=== PATIENT | male | born 1950 | race Caucasian/White ===

== ENCOUNTER 2017-12-06 09:18 | Outpatient (CLI) | payer MEDICARE, OTHER ==
[2017-12-06 10:41] LABS: Hemoglobin 15.4 g/dL (14.0-18.0); Mean Corpuscular HGB CONC 32.5 g/dL (32.0-36.0); Mean Corpuscular Hemoglobin 29.6 pg (27.0-31.0); Mean Corpuscular Volume 91.1 fL (78.0-98.0); Mean Platelet Volume 8.9 fL (7.4-10.4); Platelet Count 202 thou/uL (130-400); RBC Distribution Width 14.3 % (11.5-14.5); White Blood Cell (WBC) Count 7.9 thou/uL (4.8-10.8)
[2017-12-06 10:50] LABS: INR-International Normal Ratio 1.7; PTT 39.4 SEC (22.9-36.1); Prothrombin Time 19.9 SEC (12.0-14.7)
[2017-12-06 11:05] LABS: ALT (SGPT) 17 U/L (8-55); AST (SGOT) 15 U/L (5-34); Albumin 3.8 g/dL (3.4-4.8); Alkaline Phosphatase 51 U/L (40-150); Anion Gap 11 mmol/L (10-20); BUN (Urea Nitrogen) 12 mg/dL (8.4-25.7); Calc. Creatinine Clearance 0 mL/min (70-130); Calcium 8.8 mg/dL (7.8-10.44); Carbon Dioxide 23 mmol/L (23-31); Cardiac Risk 3.7 (Less than 4.5); Chloride 108 mmol/L (98-107); Cholesterol 116 mg/dl (< 200 Desired); Estimated GFR-MDRD 65; Glucose 97 mg/dL (80-115); HDL Cholesterol 31 mg/dL (>60 Neg Risk); LDL Cholesterol, Calculated 60 mg/dL; Potassium 4.7 mmol/L (3.5-5.1); Protein, Total 6.8 g/dL (5.8-8.1); Sodium 137 mmol/L (136-145); Triglycerides 127 mg/dL (Less than 150)
--- NOTE | 2017-12-08 17:53 | EKG ---
Test Reason : Blood Pressure : / mmHG Vent. Rate : 065 BPM Atrial Rate : 065 BPM P-R Int : 000 ms QRS Dur : 076 ms QT Int : 422 ms P-R-T Axes : 000 -64 012 degrees QTc Int : 438 ms Electronic atrial pacemaker Low voltage QRS Left anterior fascicular block Nonspecific ST and T wave abnormality Abnormal ECG Confirmed by JANE DARBY (2) on 12/08/2017 5:52:34 PM Referred By: ROGER Confirmed By:JANE DARBY
== END 2017-12-06 09:19 | disposition home or self-care (01) ==
LOC: LABBT 09:18
PROVIDERS: ATTEND Internal Medicine Cardiovascular Disease
DX: Z01.818 Encounter for other preprocedural examination (principal); R94.39 Abnormal result of other cardiovascular function study
CPT/HCPCS: 80053; 80061; 85027; 85610; 85730; 93005; 93010

== ENCOUNTER 2017-12-09 05:56 | Day surgery (SDC) | payer MEDICARE, OTHER ==
[2017-12-06 09:48] VITALS: BMI 39.2
[2017-12-09] MEDS ORDERED: Diazepam 5 MG TAB ONE (06:57)
[2017-12-09] MEDS ORDERED: Lidocaine 1% (PF) 30 ML VIAL ONE (07:51)
[2017-12-09] MEDS ORDERED: Midazolam HCl 2 mg/2 ml Vial ONE (07:56)
[2017-12-09] MEDS ORDERED: Fentanyl 100 MCG/2 ML VIAL ONE (07:56)
[2017-12-09] MEDS ORDERED: Nitroglycerin 100MG/250ML BOT 250 ML ONE (08:49)
[2017-12-09] MEDS ORDERED: Iopamidol 370 76% 100 ML VIAL ONE (11:04)
== END 2017-12-09 14:08 | disposition home or self-care (01) ==
LOC: SDC 05:56
PROVIDERS: ATTEND Internal Medicine Cardiovascular Disease
PROC: 4A023N7 Measurement of Cardiac Sampling and Pressure, Left Heart, Percutaneous Approach (ICD-10-PCS; principal; 2017-12-09)
PROC: B2111ZZ Fluoroscopy of Multiple Coronary Arteries using Low Osmolar Contrast (ICD-10-PCS; 2017-12-09)
DX: I25.10 Atherosclerotic heart disease of native coronary artery without angina pectoris (principal); E78.5 Hyperlipidemia, unspecified; I25.2 Old myocardial infarction; I10 Essential (primary) hypertension; I48.0 Paroxysmal atrial fibrillation; Z79.01 Long term (current) use of anticoagulants; Z79.82 Long term (current) use of aspirin; Z79.891 Long term (current) use of opiate analgesic; Z79.899 Other long term (current) drug therapy; Z95.5 Presence of coronary angioplasty implant and graft
CPT/HCPCS: 76942; 93458; C1769; 99152; J1644; J2001; J2250; J3010

== ENCOUNTER 2017-12-20 05:58 | Inpatient (IN) | payer MEDICARE, OTHER ==
[2017-12-20] MEDS ORDERED: Albumin 5% 500 ML ONE (06:30)
[2017-12-20] MEDS ORDERED: Heparin 10,000 UNITS/1 ML VIAL 30,000 UNITS in Sodium Chloride 0.9% 1,000 ML FS SCH (06:45)
[2017-12-20 06:57] LABS: Hemoglobin 15.8 g/dL (14.0-18.0); Mean Corpuscular HGB CONC 33.1 g/dL (32.0-36.0); Mean Corpuscular Hemoglobin 29.9 pg (27.0-31.0); Mean Corpuscular Volume 90.4 fL (78.0-98.0); Mean Platelet Volume 8.8 fL (7.4-10.4); Platelet Count 204 thou/uL (130-400); RBC Distribution Width 14.7 % (11.5-14.5); Red Blood Cell (RBC) Count 5.28 mill/uL (4.70-6.10); White Blood Cell (WBC) Count 8.2 thou/uL (4.8-10.8)
[2017-12-20] MEDS ORDERED: Norepinephrine 8 MG/0.9% NS 250 ML ONE (06:59)
[2017-12-20] MEDS ORDERED: Fentanyl 250 MCG/5 ML VIAL ONE (06:59)
[2017-12-20] MEDS ORDERED: Midazolam HCl 5 mg/5 ml Vial ONE (06:59)
[2017-12-20] MEDS ORDERED: Vecuronium 10 MG VIAL ONE ×2 (06:59→10:07)
[2017-12-20 07:05] LABS: INR-International Normal Ratio 1.1; PTT 31.4 SEC (22.9-36.1)
[2017-12-20] MEDS ORDERED: Midazolam HCl 2 mg/2 ml Vial ONE (07:07)
[2017-12-20] MEDS ORDERED: CEFAZOLIN/Water 2 GM/20 ML SYRINGE ONE (07:18)
[2017-12-20 07:19] LABS: Anion Gap 10 mmol/L (10-20); BUN (Urea Nitrogen) 17 mg/dL (8.4-25.7); Calc. Creatinine Clearance 114 mL/min (70-130); Carbon Dioxide 25 mmol/L (23-31); Chloride 106 mmol/L (98-107); Estimated GFR-MDRD 63; Glucose 114 mg/dL (80-115); Potassium 4.3 mmol/L (3.5-5.1); Sodium 137 mmol/L (136-145)
--- NOTE | 2017-12-20 08:11 | RAD ---
CHEST 1 VIEW: HISTORY: Pacemaker placement. Followup. COMPARISON: 11/24/2012. FINDINGS: Cardiac silhouette is magnified by projection. Pulmonary vasculature is unremarkable. Mild bibasila r parenchymal opacity may represent volume loss. Mediastinum is midline with aortic calcification an d a dual-lead left subclavian cardiac electronic device. No evidence of pneumothorax. IMPRESSION: Mild bibasilar atelectasis. Otherwise, stable radiographic appearance of the chest. POS: [facility]
[2017-12-20] MEDS ORDERED: Succinylcholine Chloride 20 MG/ML 10 ml SYRINGE FS ONE (10:07)
[2017-12-20] MEDS ORDERED: Potassium Chloride 60 MEQ/30 ML VIAL ONE (10:07)
[2017-12-20] MEDS ORDERED: Aminocaproic Acid 5 GM/20 ML VIAL ONE (10:07)
[2017-12-20] MEDS ORDERED: Lidocaine 2% PF 100 mg/5 ml Syringe ONE (10:07)
[2017-12-20] MEDS ORDERED: Mannitol 12.5 GM/50 ML ONE (10:07)
[2017-12-20] MEDS ORDERED: Sodium Bicarb 50 MEQ/50 ML VIAL ONE (10:07)
[2017-12-20] MEDS ORDERED: Papaverine 60 MG/2 ML VIAL ONE (10:07)
[2017-12-20] MEDS ORDERED: Heparin 30,000 units/30 ml VIAL ONE (10:07)
[2017-12-20] MEDS ORDERED: Protamine Sulfate 250 MG/25 ML VIAL ONE (10:07)
[2017-12-20] MEDS ORDERED: Heparin 5,000 UNITS/ML VIAL ONE (10:07)
[2017-12-20] MEDS ORDERED: Magnesium 5 GM/10 ML VIAL ONE (10:07)
[2017-12-20] MEDS ORDERED: Calcium Chloride 1 GM/10 ML Abboject SYRINGE ONE (10:07)
[2017-12-20] MEDS ORDERED: Cardioplegic Soln 1,000 ML BAG ONE (10:07)
[2017-12-20] MEDS ORDERED: Thrombin 5000 UNITS/5 ML VIAL ONE (10:07)
[2017-12-20] MEDS ORDERED: Nitroglycerin 50 MG/250 ML BOT ONE (10:07)
[2017-12-20] MEDS ORDERED: PROPOFOL 200 MG/20 ML VIAL ONE (10:07)
[2017-12-20] MEDS ORDERED: Guaifenesin DM 100-10/5 ML UDCUP PO PRN (11:25)
[2017-12-20] MEDS ORDERED: Potassium Chloride 20 MEQ/100 ML PREMIX BAG IVPB PRN (11:25)
[2017-12-20] MEDS ORDERED: HYDROcodone/Acetaminophen 5/325 mg Tablet PO PRN (11:25)
[2017-12-20] MEDS ORDERED: hydrALAZINE 20 MG/ML VIAL SLOW IVP PRN (11:25)
[2017-12-20] MEDS ORDERED: Mag-Al 1200 mg/1200 mg/30 ML UDCUP PO PRN (11:25)
[2017-12-20] MEDS ORDERED: Norepinephrine 8 MG/0.9% NS 250 ML IVPB PRN (11:25)
[2017-12-20] MEDS ORDERED: Phenylephrine 10 MG/NS 250 ML 250 ML IVPB PRN (11:25)
[2017-12-20] MEDS ORDERED: Nitroglycerin 50 MG/250 ML BOT 250 ML IVPB PRN (11:25)
[2017-12-20] MEDS ORDERED: Morphine 2 MG/ML SYRINGE SLOW IVP PRN (11:25)
[2017-12-20] MEDS ORDERED: Ondansetron HCl/PF 4 MG/2 ML Vial IVP PRN (11:25)
[2017-12-20] MEDS ORDERED: Bisacodyl 5 MG TAB PO PRN (11:25)
[2017-12-20] MEDS ORDERED: Bisacodyl 10 MG SUPP PR PRN (11:25)
[2017-12-20] MEDS ORDERED: Fentanyl 100 MCG/2 ML VIAL SLOW IVP PRN (11:25)
[2017-12-20] MEDS ORDERED: Hetastarch 6% 500 ML 500 ML IVPB PRN (11:25)
[2017-12-20] MEDS ORDERED: Acetaminophen 325 MG TAB PO PRN (11:25)
[2017-12-20] MEDS ORDERED: Promethazine HCl 25 MG/ML VIAL IM PRN (11:25)
[2017-12-20] MEDS ORDERED: Prevnar 13-Val Conj/PF 0.5 ML SYRINGE IM ONE (11:30)
[2017-12-20] MEDS ORDERED: D5 1/2 NS w/20 mEq KCL 1,000 ML IV SCH (11:30)
[2017-12-20] MEDS ORDERED: Magnesium 2 GM/50 ML 2 GM in Premix Bag 1 BAG IVPB SCH (11:30)
[2017-12-20] MEDS ORDERED: Morphine 4 MG/ML VIAL ONE (11:50)
[2017-12-20] MEDS ORDERED: Dextrose 50% Abboject 50 ML SYRINGE SLOW IVP PRN (11:59)
[2017-12-20] MEDS ORDERED: Dextrose 5% in Water 1,000 ML IV PRN (11:59)
[2017-12-20 12:00] LABS: Actual Bicarbonate (HCO3a) 22.9 mEq/L (22-28); Base Excess (BEa) -2.8 mEq/L (-2.0 to +3.0); CO2 Tension 42.9 mmHg (35.0-45.0); Calcium, Ionized 1.07 mmol/L (1.12-1.30); Carboxyhemoglobin (COHb) 1.3 gm% (0.0-3.0); Hemoglobin (Hb) 14.9 g/dL (14.0-18.0); O2 Tension (PaO2) 70.8 mmHg (> 80.0); Potassium - ABG Lab 4.75 mmol/L (3.70-5.30); pH, Arterial 7.35 (7.35-7.45)
[2017-12-20 12:01] LABS: ALV-art Gradient 303.375 (0-20); Puncture Site ALINE
--- NOTE | 2017-12-20 12:03 | OP ---
DATE OF PROCEDURE: 12/20/2017 PREOPERATIVE DIAGNOSES: Coronary artery disease/hypertension/hyperlipidemia. POSTOPERATIVE DIAGNOSES: Coronary artery disease/hypertension/hyperlipidemia. PROCEDURES: Coronary artery bypass grafting x3: 1. Left internal mammary artery to 1.5 mm mid LAD -- good conduit and target. 2. Reverse saphenous vein to 1.5 mm OM -- good conduit and target. 3. Reverse saphenous vein to 1.5 mm PDA -- good conduit and target. SURGEON: Tyler Asif M.D. and Albin Almanza M.D. ANESTHESIA: General endotracheal -- Devan Mills M.D. PUMP TIME: 54 minutes. CROSS-CLAMP TIME: 31 minutes. LOW CORE TEMP: 32-degree Celsius. EQUIPMENT SERVICE TECHNICIAN: Josette Hutton. DRAINS: 24-[place] chest tubes x2. DRIPS: None. TRANSFUSIONS: None. PROCEDURE IN DETAIL: After consent was obtained, the patient was brought to the operating room and p laced in the supine position on the operating room table. Appropriate anesthetic monitor was placed and general endotracheal anesthesia induced. Chest, abdomen and legs were prepped and draped in the usual sterile fashion. Greater saphenous vein was harvested from the left lower extremity using an e ndoscopic technique. Wounds were irrigated and closed in layers. Median sternotomy was performed. Left internal mammary artery was harvested as a pedicle graft. The patient was systemically heparini zed. Distal pedicle was divided and infused with papaverine. Thymic fat and pericardium were divide d with electrocautery. Pericardial stay sutures were placed. Aortic and atrial cannulation was perf ormed. After adequate heparinization, retrograde prime was performed. The patient was then placed o n cardiopulmonary bypass. Distal targets were marked. Aortic cross-clamp was applied and antegrade sanguinous cardioplegic arrest obtained. One liter of antegrade cold [place] cardioplegia was given . Topical cold solution was used. Reverse saphenous vein was anastomosed to the PDA in end-to-side fashion with running 7-0 Prolene suture. Anastomosis was tested and was hemostatic. Reverse sapheno us vein was anastomosed to the OM in end-to-side fashion with running 7-0 Prolene suture. Anastomosi s was tested and was hemostatic. Mammary artery was brought through a window in the pericardium and anastomosed to the LAD in end-to-side fashion with running 7-0 Prolene suture. On release of mammary clamps, good hooding anastomosis and good distal flow. The pedicle was secured with interrupted 6-0 Prolene suture. Cross-clamp was removed and partial occluding clamp placed. Saphenous veins were a nastomosed to individual punch sites with running 6-0 Prolene suture. Partial occluding clamp was re moved and grafts deaired. Anastomoses were inspected for hemostasis. The patient was warmed and wea blanca from cardiopulmonary bypass. After resumption of sinus rhythm, good hemodynamics and temperature greater than 36.5, bypass was discontinued. Transfusions were given. Decannulation was performed a nd pursestring sutures secured. Aortic cannulation site was reinforced with 4-0 Prolene suture. 24- [place] chest tubes were placed in mediastinum. Vancomycin paste was placed on the sternal edges. Af ter adequate hemostasis had been obtained, sternum was closed with #7 wire, 3 in the manubrium and 1 in the distal sternum. Four zip ties were placed in the body of the sternum. Sternum was treated wi th vancomycin paste and platelet-rich plasma. Wires were then twisted and zip ties were tightened an d cut. Wounds irrigated, treated with platelet-poor plasma and closed in multiple layers. Needle, s ponge and instrument counts were all reported as correct at the end of the procedure. The patient wa s transferred to the intensive care unit in stable, but critical condition.
[2017-12-20 12:05] LABS: INR-International Normal Ratio 1.4; PTT 30.4 SEC (22.9-36.1); Prothrombin Time 17.3 SEC (12.0-14.7)
[2017-12-20 12:09] LABS: #Eosinphils 0.3 thou/uL (0.0-0.7); #Lymphocytes 1.6 thou/uL (1.20-3.40); #Neutrophils 12.5 thou/uL (1.40-6.50); %Eosinophils 1.7 % (0.0-10.0); %Lymphocytes 10.3 % (21.0-51.0); %Monocytes 6.6 % (0.0-10.0); %Neutrophils 81.4 % (42.0-75.0); Hemoglobin 14.3 g/dL (14.0-18.0); Mean Corpuscular HGB CONC 33.2 g/dL (32.0-36.0); Mean Corpuscular Hemoglobin 30.2 pg (27.0-31.0); Mean Platelet Volume 8.9 fL (7.4-10.4); Platelet Count 155 thou/uL (130-400); RBC Distribution Width 14.6 % (11.5-14.5); Red Blood Cell (RBC) Count 4.74 mill/uL (4.70-6.10); White Blood Cell (WBC) Count 15.4 thou/uL (4.8-10.8)
[2017-12-20] MEDS: Insulin Regular 300 UNITS/3 ML VIAL SC PRN ×4 (12:15→23:08)
[2017-12-20] MEDS: Ketorolac Tromethamine 30 MG/ML VIAL IVP SCH ×3 (12:16→23:04)
[2017-12-20 12:20] LABS: Anion Gap 10 mmol/L (10-20); BUN (Urea Nitrogen) 15 mg/dL (8.4-25.7); Calc. Creatinine Clearance 141 mL/min (70-130); Calcium 7.7 mg/dL (7.8-10.44); Carbon Dioxide 23 mmol/L (23-31); Chloride 107 mmol/L (98-107); Estimated GFR-MDRD 81; Glucose 143 mg/dL (80-115); Potassium 4.9 mmol/L (3.5-5.1); Sodium 135 mmol/L (136-145)
[2017-12-20] MEDS: Fentanyl 100 MCG/2 ML VIAL SLOW IVP PRN ×5 (12:37→21:40)
[2017-12-20 12:42] VITALS: BMI 37.7
--- NOTE | 2017-12-20 12:44 | RAD ---
RADIOGRAPH CHEST 1 VIEW: Date: 12-20-17 Time: 10:48 a.m. HISTORY: 67-year-old male status post open heart surgery. COMPARISON: 12-20-17 at 6:40 a.m. FINDINGS: Again noted is the dual-lead left subclavian pacemaker. The following new life support lines have bee n inserted: ETT with tip overlying the midthoracic trachea, right subclavian central line with distal tip overlying the right atrium, midline mediastinal chest tube, and left basilar chest tube. New pat magdalena airspace density in the retrocardiac portion of left lower lobe, and left perihilar region, proba delano representing atelectasis. No pulmonary edema. This is a supine image, which would be insensitive for pneumothorax detection. New sternotomy wires. IMPRESSION: 1. Immediately status post open heart surgery with life support lines as listed above. 2. Left lower lobe and left perihilar atelectasis. TIFFANIE POS: [facility]
[2017-12-20 13:50] LABS: Actual Bicarbonate (HCO3a) 21.6 mEq/L (22-28); Base Excess (BEa) -3.2 mEq/L (-2.0 to +3.0); CO2 Tension 38.3 mmHg (35.0-45.0); Calcium, Ionized 1.02 mmol/L (1.12-1.30); Carboxyhemoglobin (COHb) 1.3 gm% (0.0-3.0); Hemoglobin (Hb) 14.4 g/dL (14.0-18.0); O2 Tension (PaO2) 66.9 mmHg (> 80.0); Potassium - ABG Lab 4.31 mmol/L (3.70-5.30); pH, Arterial 7.37 (7.35-7.45)
[2017-12-20 13:51] LABS: ALV-art Gradient 170.425 (0-20); Puncture Site ALINE
[2017-12-20] MEDS: CEFAZOLIN/Water 2 GM/20 ML SYRINGE SLOW IVP SCH ×2 (15:20→23:05)
[2017-12-20] MEDS: HYDROcodone/Acetaminophen 5/325 mg Tablet PO PRN ×2 (15:46→19:45)
[2017-12-20 17:51] LABS: Hemoglobin 14.3 g/dL (14.0-18.0)
[2017-12-20 18:11] LABS: Potassium 4.7 mmol/L (3.5-5.1)
[2017-12-20] MEDS: Famotidine/PF 20 mg/2ml Vial SLOW IVP SCH (19:52)
[2017-12-21] MEDS: HYDROcodone/Acetaminophen 5/325 mg Tablet PO PRN ×5 (01:12→21:16)
[2017-12-21 03:30] LABS: #Lymphocytes 1.6 thou/uL (1.20-3.40); #Monocytes 1.5 thou/uL (0.11-0.59); #Neutrophils 8.5 thou/uL (1.40-6.50); %Basophils 0.1 % (0.0-1.0); %Eosinophils 0.4 % (0.0-10.0); %Lymphocytes 13.7 % (21.0-51.0); %Monocytes 12.6 % (0.0-10.0); %Neutrophils 73.3 % (42.0-75.0); Hemoglobin 13.6 g/dL (14.0-18.0); Mean Corpuscular HGB CONC 33.6 g/dL (32.0-36.0); Mean Corpuscular Hemoglobin 30.8 pg (27.0-31.0); Mean Corpuscular Volume 91.8 fL (78.0-98.0); Mean Platelet Volume 8.3 fL (7.4-10.4); Platelet Count 166 thou/uL (130-400); RBC Distribution Width 14.9 % (11.5-14.5); Red Blood Cell (RBC) Count 4.42 mill/uL (4.70-6.10); White Blood Cell (WBC) Count 11.6 thou/uL (4.8-10.8)
[2017-12-21 03:43] LABS: Anion Gap 9 mmol/L (10-20); BUN (Urea Nitrogen) 16 mg/dL (8.4-25.7); Calc. Creatinine Clearance 145 mL/min (70-130); Calcium 7.8 mg/dL (7.8-10.44); Carbon Dioxide 24 mmol/L (23-31); Chloride 107 mmol/L (98-107); Estimated GFR-MDRD 82; Glucose 134 mg/dL (80-115); Potassium 4.4 mmol/L (3.5-5.1); Sodium 136 mmol/L (136-145)
[2017-12-21] MEDS: Insulin Regular 300 UNITS/3 ML VIAL SC PRN ×2 (04:12→07:59)
[2017-12-21] MEDS: Ketorolac Tromethamine 30 MG/ML VIAL IVP SCH ×4 (05:12→23:28)
[2017-12-21] MEDS: CEFAZOLIN/Water 2 GM/20 ML SYRINGE SLOW IVP SCH (06:35)
[2017-12-21] MEDS: Aspirin 325 MG TAB PO SCH (07:45)
[2017-12-21] MEDS: Famotidine/PF 20 mg/2ml Vial SLOW IVP SCH (07:46)
--- NOTE | 2017-12-21 08:05 | RAD ---
CHEST 1 VIEW: HISTORY: Dyspnea. Followup. COMPARISON: 12/20/2017. FINDINGS: Cardiac silhouette is magnified by projection. Pulmonary vasculature upper limits of normal. Medias tinum is midline with postoperative changes. Endotracheal catheter is no longer visible. Right subc lavian central venous catheter remains in place. NO evidence of pneumothorax. IMPRESSION: Interval extubation. Otherwise, stable postoperative appearance of the chest. POS: [facility]
[2017-12-21] MEDS: Magnesium 2 GM/50 ML 2 GM in Premix Bag 1 BAG IVPB SCH (08:34)
[2017-12-21] MEDS ORDERED: Bisacodyl 10 MG SUPP PR PRN (08:40)
[2017-12-21] MEDS ORDERED: Zolpidem Tartrate 5 MG TAB PO PRN (08:40)
[2017-12-21] MEDS ORDERED: diphenhydrAMINE 25 MG CAP PO PRN (08:40)
[2017-12-21] MEDS ORDERED: Artificial Tears 18 DROP/0.9 ML EA EYE PRN (08:40)
[2017-12-21] MEDS ORDERED: Nitroglycerin 0.4 MG TAB (25 Tab Bottle) SL PRN (08:40)
[2017-12-21] MEDS ORDERED: Mineral Oil ENEMA PR PRN (08:40)
[2017-12-21] MEDS ORDERED: Mag-Al 1200 mg/1200 mg/30 ML UDCUP PO PRN (08:40)
[2017-12-21] MEDS ORDERED: Milk Of Magnesia 30 ML UDCUP PO PRN (08:40)
[2017-12-21] MEDS ORDERED: Bisacodyl 5 MG TAB PO PRN (08:40)
[2017-12-21] MEDS ORDERED: Guaifenesin DM 100-10/5 ML UDCUP PO PRN (08:40)
[2017-12-21] MEDS ORDERED: Dronedarone HCl 400 MG TAB PO SCH ×2 (09:00)
[2017-12-21] MEDS: Furosemide 20 MG TAB PO SCH (09:01)
[2017-12-21] MEDS: Famotidine 20 MG TAB PO SCH ×2 (09:01→21:07)
[2017-12-21] MEDS: Aspirin 325 mg Enteric Coated Tablet PO SCH (09:01)
[2017-12-21] MEDS: Dronedarone HCl 400 MG TAB PO SCH (17:36)
[2017-12-21] MEDS: Atorvastatin Calcium 40 MG TAB PO SCH (21:07)
[2017-12-22] MEDS: Ketorolac Tromethamine 30 MG/ML VIAL IVP SCH ×3 (05:21→18:11)
[2017-12-22] MEDS: HYDROcodone/Acetaminophen 5/325 mg Tablet PO PRN ×4 (07:01→20:11)
[2017-12-22] MEDS: Magnesium 2 GM/50 ML 2 GM in Premix Bag 1 BAG IVPB SCH (08:11)
[2017-12-22] MEDS: Aspirin 325 MG TAB PO SCH (08:11)
[2017-12-22] MEDS: Furosemide 20 MG TAB PO SCH (08:11)
[2017-12-22] MEDS: Dronedarone HCl 400 MG TAB PO SCH ×2 (08:11→18:11)
[2017-12-22] MEDS: Aspirin 325 mg Enteric Coated Tablet PO SCH (08:11)
[2017-12-22] MEDS: Famotidine 20 MG TAB PO SCH ×2 (08:11→20:11)
[2017-12-22] MEDS ORDERED: Metolazone 5 MG TAB PO SCH (10:00)
[2017-12-22] MEDS ORDERED: Furosemide 40 MG TAB PO SCH (10:15)
[2017-12-22] MEDS: Furosemide 40 MG TAB PO SCH (16:08)
[2017-12-22] MEDS: Carvedilol 3.125 MG TAB PO SCH (18:11)
[2017-12-22] MEDS: Atorvastatin Calcium 40 MG TAB PO SCH (20:11)
--- NOTE | 2017-12-22 21:06 | EKG ---
Test Reason : PREOP Blood Pressure : / mmHG Vent. Rate : 061 BPM Atrial Rate : 063 BPM P-R Int : 000 ms QRS Dur : 076 ms QT Int : 448 ms P-R-T Axes : 000 -56 -24 degrees QTc Int : 450 ms Electronic atrial pacemaker Left anterior fascicular block Nonspecific ST and T wave abnormality Abnormal ECG When compared with ECG of 06-DEC-2017 10:16, No significant change was found Confirmed by Neal ONEILL ([id number]) on 12/22/2017 9:06:25 PM Referred By: Oliver WRIGHT Confirmed By:Neal ONEILL
--- NOTE | 2017-12-22 21:14 | EKG ---
Test Reason : POST CABG Blood Pressure : / mmHG Vent. Rate : 062 BPM Atrial Rate : 061 BPM P-R Int : 000 ms QRS Dur : 124 ms QT Int : 492 ms P-R-T Axes : 000 -59 077 degrees QTc Int : 499 ms AV sequential or dual chamber electronic pacemaker When compared with ECG of 20-DEC-2017 06:49, (Unconfirmed) Electronic ventricular pacemaker has replaced Electronic atrial pacemaker Confirmed by Neal ONEILL ([id number]) on 12/22/2017 9:13:52 PM Referred By: Oliver ALCANTARA Confirmed By:Neal ONEILL
[2017-12-23] MEDS: Ketorolac Tromethamine 30 MG/ML VIAL IVP SCH ×3 (00:21→11:45)
[2017-12-23] MEDS: HYDROcodone/Acetaminophen 5/325 mg Tablet PO PRN (05:39)
[2017-12-23] MEDS: Dronedarone HCl 400 MG TAB PO SCH (09:17)
[2017-12-23] MEDS: Furosemide 40 MG TAB PO SCH (09:17)
[2017-12-23] MEDS: Famotidine 20 MG TAB PO SCH (09:18)
[2017-12-23] MEDS: Carvedilol 3.125 MG TAB PO SCH (09:18)
[2017-12-23] MEDS: Aspirin 325 mg Enteric Coated Tablet PO SCH (09:18)
[2017-12-23 10:48] LABS: Actual Bicarbonate (HCO3a) 22.9 mEq/L (22-28); Analyzer IN Cardio OR; Base Excess (BEa) -0.2 mEq/L (-2.0 to +3.0); CO2 Tension 32.4 mmHg (35.0-45.0); Calcium, Ionized 0.97 mmol/L (1.12-1.30); Carboxyhemoglobin (COHb) 0.2 gm% (0.0-3.0); Hemoglobin (Hb) 11.7 g/dL (14.0-18.0); O2 Tension (PaO2) 359.3 mmHg (> 80.0); Potassium - ABG Lab 5.72 mmol/L (3.70-5.30); Puncture Site ALINE; pH, Arterial 7.47 (7.35-7.45)
[2017-12-23 10:51] LABS: Actual Bicarbonate (HCO3a) 19.2 mEq/L (22-28); Analyzer IN Cardio OR; Base Excess (BEa) -4.6 mEq/L (-2.0 to +3.0); CO2 Tension 31.8 mmHg (35.0-45.0); Calcium, Ionized 1.01 mmol/L (1.12-1.30); Carboxyhemoglobin (COHb) 0.6 gm% (0.0-3.0); Hemoglobin (Hb) 13.3 g/dL (14.0-18.0); O2 Tension (PaO2) 82.4 mmHg (> 80.0); Potassium - ABG Lab 4.85 mmol/L (3.70-5.30); Puncture Site ALINE
[2017-12-23 10:52] LABS: Actual Bicarbonate (HCO3a) 21.7 mEq/L (22-28); Analyzer IN Cardio OR; Base Excess (BEa) -1.8 mEq/L (-2.0 to +3.0); CO2 Tension 33.8 mmHg (35.0-45.0); Calcium, Ionized 1.12 mmol/L (1.12-1.30); Carboxyhemoglobin (COHb) 0.9 gm% (0.0-3.0); Hemoglobin (Hb) 14.9 g/dL (14.0-18.0); O2 Tension (PaO2) 339.6 mmHg (> 80.0); Potassium - ABG Lab 4.68 mmol/L (3.70-5.30); Puncture Site ALINE; pH, Arterial 7.43 (7.35-7.45)
[2017-12-23 10:53] LABS: Actual Bicarbonate (HCO3a) 21.2 mEq/L (22-28); Analyzer IN Cardio OR; Base Excess (BEa) -2.8 mEq/L (-2.0 to +3.0); Calcium, Ionized 1.08 mmol/L (1.12-1.30); Hemoglobin (Hb) 14.2 g/dL (14.0-18.0); O2 Tension (PaO2) 306.4 mmHg (> 80.0); Potassium - ABG Lab 4.97 mmol/L (3.70-5.30); Puncture Site ALINE
[2017-12-23 10:54] LABS: Actual Bicarbonate (HCO3v) 26 mEq/L (22-28); Analyzer IN Cardio OR; Base Excess 0.8 mEq/L (-2.0 to +3.0); Calcium, Ionized 0.98 mmol/L (1.16-1.32); Chloride (ABG LAB) 107 mmol/L (98-106); Hemoglobin (Hb) 11.7 g/dL (12.6-17.4); Potassium - ABG Lab 5.72 mmol/L (3.70-5.30); Sodium 137.2 mmol/L (133-146); pH (venous) 7.41 (7.32-7.43)
[2017-12-23 10:55] LABS: Actual Bicarbonate (HCO3a) 22.6 mEq/L (22-28); Analyzer IN Cardio OR; Base Excess (BEa) -0.2 mEq/L (-2.0 to +3.0); CO2 Tension 31.1 mmHg (35.0-45.0); Calcium, Ionized 1.12 mmol/L (1.12-1.30); Carboxyhemoglobin (COHb) 0.6 gm% (0.0-3.0); Hemoglobin (Hb) 11.5 g/dL (14.0-18.0); O2 Tension (PaO2) 466.4 mmHg (> 80.0); Potassium - ABG Lab 6.23 mmol/L (3.70-5.30); pH, Arterial 7.48 (7.35-7.45)
[2017-12-23 10:56] LABS: Puncture Site ALINE
[2017-12-23 11:41] VITALS: BP 128/88; TEMP 97.3
--- NOTE | 2017-12-23 13:09 | DIS ---
DATE OF ADMISSION: 12/20/2017 DATE OF DISCHARGE: 12/23/2017 DIAGNOSES: 1. Coronary artery disease. 2. Previous history of hypertension. 3. Hyperlipidemia. PROCEDURES: Coronary artery bypass grafting x3: 1) Left internal mammary artery to LAD, 2) reverse saphenous vein to OM; 3) reversed saphenous vein to PDA. DESCRIPTION OF HOSPITAL STAY: Mr. Moise was electively admitted for coronary artery bypass graftin . He has done well postoperatively. He has had no rhythm disturbances. At the time of discharge, he is ambulatory, tolerating a regular diet, having good bowel and bladder function. Incisions are c lean and dry without evidence of infection. DISCHARGE MEDICATIONS: 1. Aspirin 81 mg every day. 2. Xarelto 20 mg at bedtime. 3. Coreg 3.125 mg every day. 4. Multaq 400 mg b.i.d. 5. Zocor 40 mg at bedtime. 6. [place] 5/325 1-2 q.6 hours p.r.n. pain. FOLLOWUP: Follow up is with me in 2 weeks, Dr. Rothman in a month.
== END 2017-12-23 13:06 | disposition home or self-care (01) | DRG 236 ==
LOC: SURG A 05:58 → CCU 11:47 → 2NO 12-21 09:19
PROVIDERS: ADMIT Thoracic Surgery (Cardiothoracic Vascular Surgery); ATTEND Thoracic Surgery (Cardiothoracic Vascular Surgery)
PROC: 02100Z9 Bypass Coronary Artery, One Artery from Left Internal Mammary, Open Approach (ICD-10-PCS; principal; 2017-12-20)
PROC: 0211093 Bypass Coronary Artery, Two Arteries from Coronary Artery with Autologous Venous Tissue, Open Approach (ICD-10-PCS; 2017-12-20)
DX: I25.118 Atherosclerotic heart disease of native coronary artery with other forms of angina pectoris (principal); E78.5 Hyperlipidemia, unspecified; I10 Essential (primary) hypertension; Z79.899 Other long term (current) drug therapy; Z79.82 Long term (current) use of aspirin; Z79.01 Long term (current) use of anticoagulants; Z87.891 Personal history of nicotine dependence; I48.0 Paroxysmal atrial fibrillation
CPT/HCPCS: 36416; 71045; 80048; 82805; 85025; 85027; 85610; 85730; 86850; 86900; 86901; 90471; 90670; 93005; 93010; 93798; 94002; 94150; 94640; G0009; J1642; J1644; J1815; J1885; J2001; J2150; J2250; J2270; J2405; J2440; J2704; J2720; J3010; J3370; J3475; J3480; J7050; J7620; P9045; S0017; S0028